=== PATIENT | female | born 2000 | race Caucasian/White ===

== ENCOUNTER 2021-12-06 22:40 | Emergency (ER) | payer MEDICAID ==
[~2021-12-06] VITALS: Ht 167.6 cm; Wt 86.2 kg
[2021-12-07 03:02] VITALS: BP 100/62
== END 2021-12-07 03:36 | disposition left against medical advice (07) ==
LOC: ER 22:40
DX: H92.01 Otalgia, right ear (principal); Z53.21 Procedure and treatment not carried out due to patient leaving prior to being seen by health care provider